=== PATIENT | female | born 1970 | race African-American/Black ===

== ENCOUNTER 2020-06-01 00:07 | Outpatient (CLI) | payer BC, SELFPAY ==
[2020-06-01 16:39] LABS: SARS-CoV-2 RNA PCR Negative
== END 2020-06-01 00:08 | disposition home or self-care (01) ==
LOC: ANHCOVIDDT 00:07
PROVIDERS: PCP Family Medicine; Visit Provider Internal Medicine Gastroenterology
DX: Z01.812 Encounter for preprocedural laboratory examination (principal); Z20.828 Contact with and (suspected) exposure to other viral communicable diseases
CPT/HCPCS: 87635; C9803; U0003

== ENCOUNTER 2020-06-03 03:13 | Day surgery (SDC) | payer BC, SELFPAY ==
[2020-05-28 13:51] VITALS: BMI 30.2
[2020-06-03 06:52] VITALS: BP 144/95; PULSE 97; RESP 17; TEMP 37.1; O2SAT 100; BMI 29.9
[2020-06-03] MEDS: LACTATED RINGERS 1,000 ML 150 ML IV CONT (07:03)
--- NOTE | 2020-06-03 07:52 | WPDANESEPPF ---
Anes - Initial Pre Proc Eval Procedure: Operation Date: 06/03/20 08:00 Proposed Procedures p Screening Colonoscopy - Orlando Barone MD Date/Time: 06/03/20 07:52 Surgeon: Orlando Barone MD Pre Op Diagnosis: Neoplasm Screening Patient Data Age: 49 Gender: F Height: 5 ft 6 in Weight: 84.2 kg Last Vital Signs Temp 98.8 F 06/03/20 06:52 Pulse 97 06/03/20 06:52 Resp 17 06/03/20 06:52 BP 144/95 H 06/03/20 06:52 Pulse Ox 100 06/03/20 06:52 Allergies Allergy/AdvReac Type Severity Reaction Status Date / Time Penicillins Allergy Unknown Anaphylaxis Verified 06/03/20 07:04 Home Medications Medication Instructions Recorded Confirmed Type montelukast 10 mg tablet 10 mg PO DAILY #90 tablet 01/07/20 06/03/20 Rx nbgcqwxgtb-cqusnbo-zpqsmzla 50 1 cap PO Q4H PRN #30 cap 01/29/20 06/03/20 Rx mg-325 mg-40 mg capsule tamoxifen 20 mg PO DAILY 05/28/20 06/03/20 History budesonide-formoterol [Symbicort] 2 puff INHALATION Q12H PRN 06/03/20 06/03/20 History lisinopril 10 mg PO DAILY 06/03/20 06/03/20 History Patient hx anesthesia problems: none Family hx anesthesia problems: none PMFSH Past Medical History Medical History (Updated 06/03/20 @ 07:51 by Marcin Aguirre MD) Asthma Migraine Surgical History Surgical History (Updated 01/07/20 @ 15:04 by Libia Pereira MD) History of lumpectomy of left breast 2019 Status post fine needle biopsy 06/2019: Birads 5 right lobe 10 mm nodule benign follicular nodule Family History Family History (Updated 06/08/18 @ 10:44 by DOCTOR UNKNOWN) Other Cerebrovascular accident Diabetes mellitus Hypertension Malignant neoplasm of prostate Social History Social History Smoking status: Never smoker Alcohol intake: current Drinks per week: 5 Substance use: never Living arrangements: with family Gender identity (if verbalized by the patient): Female Spiritual care concerns: No Anes - Eval Final PreProcedure Day of Procedure 06/03/20 07:52 Patient weight: overweight Heart: regular rate and rhythm Lungs: clear to auscultation Airway: Mallampati scale class II Neurological: alert and oriented Last oral intake: >/= 8 hours ASA classification: II Emergent: no Anesthetic plan: proceed Anesthesia type and monitoring: general GIVS and standard monitoring Informed Consent: The patient's anesthetic plan and its attendant risks and benefits were discussed with the patient/family/POA. Questions were solicited and answers provided to the satisfaction of the patient/family/POA.
--- NOTE | 2020-06-03 08:08 | WPDGICN ---
Assessment and Plan Assessment and plan (1) Encounter for screening colonoscopy: Code(s): Z12.11 - Encounter for screening for malignant neoplasm of colon Status: Acute Assessment and Plan: Patient appears to be at average risk for colon cancer there is no family history she has no current symptoms plan is for screening colonoscopy now and at 10 year intervals unless findings developed colonoscopy further recommendations will be given after endoscopy. (2) Breast cancer, left: Code(s): C50.912 - Malignant neoplasm of unspecified site of left female breast Status: Acute GI Consult Note Consult date/time: 06/03/20 08:08 HPI: Rhea Barakat is a 49 year old female Presents for screening colonoscopy. Her current weight appetite bowel movements are normal. She denies abdominal pain. Her bowel habits are normal she denies any blood in her stools or weight has remained stable. Family history is noncontributory. Past medical history is significant for breast cancer in 2019. [place] to be low-grade, early stage , and cured. Review of Systems Review of Systems: All systems reviewed & are unremarkable except as noted in HPI and below PMFSH Past Medical History Medical History Asthma Migraine Surgical History Surgical History History of lumpectomy of left breast 2019 Status post fine needle biopsy 06/2019: Birads 5 right lobe 10 mm nodule benign follicular nodule Family History Family History Other Cerebrovascular accident Diabetes mellitus Hypertension Malignant neoplasm of prostate Social History Social History Smoking status: Never smoker Alcohol intake: current Drinks per week: 5 Substance use: never Living arrangements: with family Gender identity (if verbalized by the patient): Female Spiritual care concerns: No Meds Home Medications and Allergies Home Medications Medication Instructions Recorded Confirmed Type montelukast 10 mg tablet 10 mg PO DAILY #90 tablet 01/07/20 06/03/20 Rx coqdhwvetv-rfifglo-jzptmpim 50 1 cap PO Q4H PRN #30 cap 01/29/20 06/03/20 Rx mg-325 mg-40 mg capsule tamoxifen 20 mg PO DAILY 05/28/20 06/03/20 History budesonide-formoterol [Symbicort] 2 puff INHALATION Q12H PRN 06/03/20 06/03/20 History lisinopril 10 mg PO DAILY 06/03/20 06/03/20 History Allergies Allergy/AdvReac Type Severity Reaction Status Date / Time Penicillins Allergy Unknown Anaphylaxis Verified 06/03/20 07:04 Vital Signs Vital Signs - 24 hr 06/03/20 06:52 Temperature 98.8 F Pulse Rate 97 Respiratory Rate 17 Blood Pressure 144/95 H Pulse Oximetry 100 Exam Narrative: Exam Narrative: Physical exam reveals patient to be alert. Vital signs stable. HEENT exam unremarkable. She is anicteric. Lungs are clear to auscultation and percussion. Heart is without murmur or extra sounds. Abdominal exam bowel sounds are present soft nontender with no organomegaly. Digital external rectal exam is normal.
[2020-06-03 08:30] VITALS: BP 105/70; PULSE 83; RESP 17; O2SAT 100
[2020-06-03 08:40] VITALS: BP 114/78; PULSE 75; RESP 20; O2SAT 100
[2020-06-03 08:50] VITALS: BP 125/81; PULSE 71; RESP 21; O2SAT 100
== END 2020-06-03 09:06 | disposition home or self-care (01) ==
PROVIDERS: PCP Family Medicine; Visit Provider Internal Medicine Gastroenterology
PROC: 0DJD8ZZ Inspection of Lower Intestinal Tract, Via Natural or Artificial Opening Endoscopic (ICD-10-PCS; CPT 45378; principal; 2020-06-03 08:00)
DX: Z12.11 Encounter for screening for malignant neoplasm of colon (principal); K64.8 Other hemorrhoids; Z85.3 Personal history of malignant neoplasm of breast; J45.909 Unspecified asthma, uncomplicated; G43.909 Migraine, unspecified, not intractable, without status migrainosus
CPT/HCPCS: 45378; J2704; J7120

== ENCOUNTER 2023-07-25 09:16 | Outpatient (CLI) | payer BC, SELFPAY ==
[2023-07-25 19:56] LABS: Alanine Aminotransferase 18 U/L (6-35); Albumin Level 4.2 g/dL (3.5-5.1); Alkaline Phosphatase 48 U/L (38-126); Anion Gap 6 mmol/L (8-16); Aspartate Amino Transferase 27 U/L (14-36); Bilirubin,Total 0.6 mg/dL (0.2-1.3); Blood Urea Nitrogen 12 mg/dL (7-17); Calcium 9.4 mg/dL (8.4-10.2); Carbon Dioxide 27 mmol/L (22-30); Chloride 107 mmol/L (98-107); Cholesterol 217 mg/dL (0-200); Estimated Glomerular Filt Rate > 60; Glucose 98 mg/dL (65-110); HDL Direct 69 mg/dL; Sodium 140 mmol/L (137-145); Triglycerides 136 mg/dL (<150)
[2023-07-25 20:07] LABS: LDL Cholesterol Direct 103 mg/dL
[2023-07-25 20:19] LABS: Thyroid Stimulating Hormone 0.969 uIU/mL (0.465-4.680)
== END 2023-07-25 09:17 | disposition home or self-care (01) ==
LOC: ANHGOSHLAB 09:17
PROVIDERS: PCP Family Medicine; Visit Provider Family Medicine
DX: E04.9 Nontoxic goiter, unspecified (principal); I10 Essential (primary) hypertension; Z13.820 Encounter for screening for osteoporosis
CPT/HCPCS: 36415; 80053; 80061; 84443

== ENCOUNTER 2023-10-12 13:10 | Outpatient (CLI) | payer BC, SELFPAY ==
--- NOTE | ~2023-10-12 | DEXA_ITS ---
Bone Density Report Name: ANA RUIZ Age: 52 Sex: Female Ethnicity: Black Date of : 1970 Indication: postmenopausal; screening for osteoporosis; cancer; asthma or emphysema; Referring Provider: JONATHAN VALADEZ Study: Bone densitometry was performed. Exam Date: October 12, 2023 Accession number: [id number] Bone Density: Region BMD T-score Z-score Classification AP Spine (L1-L4) 0.988 -0.5 -0.3 Normal Femoral Neck (Left) 0.780 -0.6 -0.4 Normal Total Hip (Left) 0.998 0.5 0.3 Normal Femoral Neck (Right) 0.800 -0.4 -0.3 Normal Total Hip (Right) 0.995 0.4 0.3 Normal Total Hip Mean 0.997 0.5 0.3 Normal World Health Organization criteria for BMD impression classify patients as: Normal (T-score at or above -1.0), Osteopenia (T-score between -1.0 and -2.5), or Osteoporosis (T-score at or below -2.5). 10-year Fracture Risk: FRAX not reported because: All T-scores for Spine Total, Hip Total, Femoral Neck at or above -1.0 Treated for osteoporosis Clinical Information Provided by Patient: Is being treated for osteoporosis Has the following medical conditions: Asthma or Emphysema, Cancer, HX OF LEFT BREAST CA LUMPECTOMY 2018 WITH RADIATION AND TAMOXIFEN Patient maximum height was 65.5 Menopause Age: 36 Does not regularly consume dairy products Onset of menses at age 11 Number of children 1 Impression: The patient has normal bone mass. Discussion: It is important to ask patients whether they are taking their medications and to encourage continued and appropriate compliance with their osteoporosis therapies to reduce fracture risk. It is also important to review their risk factors and encourage appropriate calcium and vitamin D intakes, exercise, fall prevention and other lifestyle measures. Follow-Up: Consider a repeat BMD and Vertebral Fracture Assessment (VFA) exam in 2 years or sooner if medically necessary, to reassess this patient's status. Reported by: [facility] on 10/12/2023 1:47:00 PM. Reviewed, dictated and finalized at location [facility]
== END 2023-10-12 13:11 ==
PROVIDERS: PCP Family Medicine; Visit Provider Family Medicine
DX: Z78.0 Asymptomatic menopausal state (principal)
CPT/HCPCS: 77080

== ENCOUNTER 2024-07-25 09:57 | Outpatient (CLI) | payer BC, SELFPAY ==
[2024-07-25 19:02] LABS: Anion Gap 9 mmol/L (4-12); Blood Urea Nitrogen 20 mg/dL (7-17); Calcium 10.1 mg/dL (8.4-10.2); Carbon Dioxide 30 mmol/L (22-30); Chloride 101 mmol/L (98-107); Estimated Glomerular Filt Rate > 60; Glucose 93 mg/dL (65-110); Potassium 3.5 mmol/L (3.4-5.0); Sodium 140 mmol/L (137-145)
== END 2024-07-25 09:58 | disposition home or self-care (01) ==
LOC: ANHGOSHLAB 09:58
PROVIDERS: PCP Family Medicine; Visit Provider Family Medicine
DX: I10 Essential (primary) hypertension (principal)
CPT/HCPCS: 36415; 80048

== ENCOUNTER 2025-08-01 09:58 | Outpatient (NON) | payer BC, SELFPAY | END 2025-08-01 09:59 | disposition home or self-care (01) | LOC: ANHGOSHLAB 09:59 | PROVIDERS: PCP Family Medicine; Visit Provider Family Medicine | DX: Z12.4 Encounter for screening for malignant neoplasm of cervix (principal) | CPT/HCPCS: 87624; 88175; G0145 ==